=== PATIENT | male | born 2000 | race Caucasian/White ===

== ENCOUNTER 2025-04-01 06:28 | Emergency (ER) | payer OTHER ==
[~2025-04-01] VITALS: Ht 175.3 cm; Wt 82.0 kg
[2025-04-01 06:52] VITALS: O2SAT 100
[2025-04-01 08:05] LABS: CLARITY URINE CLEAR (CLEAR); COLOR URINE YELLOW (YELLOW); GLUCOSE URINE NEGATIVE (NEGATIVE); KETONES URINE NEGATIVE (NEGATIVE); LEUKOCYTE ESTERASE URINE NEGATIVE (NEGATIVE); NITRITE URINE NEGATIVE (NEGATIVE); OCCULT BLOOD URINE NEGATIVE (NEGATIVE); PH URINE 7.5 (4.5-8.0); PROTEIN URINE NEGATIVE (NEGATIVE); SPECIFIC GRAVITY URINE 1.012 (1.005-1.030); UROBILINOGEN URINE 1.0 E.U./dL (0.2-1.0)
[2025-04-01 08:11] LABS: BASOPHILS % 0.4 % (0.0-2.0); EOSINOPHILS % 1.2 % (0.0-5.0); HEMATOCRIT. 46.6 % (42.0-52.0); HEMOGLOBIN. 16.0 g/dL (14.0-18.0); LYMPHOCYTES % 28.7 % (20.0-50.0); MEAN PLATELET VOLUME 10.0 fl (7.4-10.4); MONOCYTES % 13.9 % (2.0-8.0); NEUTROPHILS % 55.8 % (40.0-76.0); PLATELET 104 x1000/uL (130-400); RED BLOOD CELL COUNT 5.34 mill/uL (4.7-6.1); RED CELL DISTRIBUTION WIDTH 12.9 % (11.6-14.6)
[2025-04-01 08:15] LABS: CREATININE 0.8 mg/dL (0.6-1.3); UREA NITROGEN BLOOD < 5 mg/dL (9-23)
[2025-04-01 08:17] LABS: ASPARTATE AMINOTRANSFERASE 32 IU/L (<34); BILIRUBIN DIRECT 0.3 mg/dL (<=3.0); BILIRUBIN TOTAL 0.9 mg/dL (0.1-1.0); PROTEIN TOTAL 7.9 g/dL (6.0-8.3)
[2025-04-01] MEDS: FAMOTIDINE 20MG TABLET PO ONE (08:28)
[2025-04-01] MEDS ORDERED: ALBU18HF2 IH (08:58)
[2025-04-01] MEDS ORDERED: P50 MT (08:59)
[2025-04-01] MEDS ORDERED: INHA1EAC10 INH (09:02)
[2025-04-01 09:12] VITALS: BP 116/65; PULSE 88; RESP 18; TEMP 36.7; O2SAT 97
== END 2025-04-01 09:14 | disposition home or self-care (01) ==
LOC: ER 06:46
DX: B34.9 Viral infection, unspecified (principal); J98.01 Acute bronchospasm
CPT/HCPCS: 36415; 80048; 80076; 81003; 85025; 99283